=== PATIENT | female | born 1960 | race African-American/Black ===

== ENCOUNTER → 2018-12-14 | Outpatient (CLI) | payer OTHER | LOC: RAD 10:38 | DX: Z12.31 Encounter for screening mammogram for malignant neoplasm of breast (principal) ==

== ENCOUNTER → 2021-05-07 | Outpatient (CLI) | payer OTHER | LOC: BC 11:48 | PROVIDERS: ATTEND Internal Medicine | DX: Z12.31 Encounter for screening mammogram for malignant neoplasm of breast (principal); N64.89 Other specified disorders of breast ==